=== PATIENT | male | born 1970 | race Two or more races ===

== ENCOUNTER 2024-06-27 05:55 | Day surgery (SDC) | payer BC, SELFPAY ==
--- NOTE | 2024-06-26 06:27 | EKG_ITS ---
[facility] Test Date: 2024-06-26 Pat Name: RONALD MARES Department: Room: - Gender: Male [employer]: ALICIA : 1970 Requested By: Tony Martinez Order Number: [id number] Reading MD: Tony Martinez Measurements Intervals [employer] Rate: 58 P: 54 NV: 219 QRS: 2 QRSD: 122 T: 73 QT: 439 QTc: 432 Interpretive Statements SINUS BRADYCARDIA WITH FIRST DEGREE AV BLOCK INFERIOR MYOCARDIAL INFARCTION , OF INDETERMINATE AGE No previous ECG available for comparison /[id number]
[2024-06-26 08:31] VITALS: BMI 35.7
[2024-06-26 09:51] LABS: Alanine Aminotransferase 44 U/L (10-49); Albumin, Serum 4.9 gm/dL (3.5-5.0); Alkaline Phosphatase 52 U/L (46-116); Anion Gap 7 (7-16); Aspartate Amino Transferase 28 U/L (0-34); BUN/Creatinine Ratio 18 Ratio (12-20); Bilirubin,Total 0.9 mg/dL (0.3-1.2); Blood Urea Nitrogen 20 mg/dL (9-23); Calcium 10.2 mg/dL (8.3-10.6); Calcium (Corrected) 10.2 mg/dL (8.5-10.1); Carbon Dioxide 30.3 mMol/L (20.0-31.0); Chloride 102 mMol/L (98-107); Creatinine (Component) 1.1 mg/dL (0.6-1.3); Estimated Creatinine Clearance 89.8 mL/min (>60); Globulin 2.5 gm/dL (2.3-3.5); Glucose 140 mg/dL (74-106); Osmolality,Calculated 282 (275-295); Potassium 4.2 mMol/L (3.4-5.1); Sodium 139 mMol/L (136-145); Total Protein 7.4 gm/dL (5.7-8.2); eGFR > 60 See Note
[2024-06-27] VITALS (7 sets, daily range): BP systolic 113–140; BP diastolic 61–93; PULSE 66–90; RESP 12–18; TEMP 36.2–36.4; O2SAT 94–99; BMI 35.2
[2024-06-27] MEDS: RINGERS LACTATED 1000 ML 1,000 ML 20 ML IV (06:25)
--- NOTE | 2024-06-27 09:40 | SUR.PHASEI ---
pt received from OR in recovery bay 7. pt asleep but responds to voice, breathing unlabored on oxymask 8l. v/s stable. pt dressing to left ear cdi. report received from Dr. Cohn and Yareli VALENTINE.
--- NOTE | 2024-06-27 09:44 | PD.SUROPNT ---
Date of Procedure 06/27/24 Pre Op Diagnosis Profound sensorineural hearing loss left ear Post Op Diagnosis Profound sensorineural hearing loss left ear Procedure Insertion of left Sentio implant Findings Normal postauricular anatomy Procedure Description Indications: This is a 53-year-old male with sudden hearing loss in the left ear that is not amenable to hearing aids. Treatment options were discussed and he wished to proceed with the implant as described above. Risk of bleeding infection and implant extrusion were discussed with him. Patient was marked in the preoperative setting and shaved. He then transferred to the operative suite where he is anesthetized intubated and sterilely prepped and draped. Timeout was performed. Marking pen was used to outline the incision site as well as the intended implant site. A curvilinear postauricular incision was then made after injecting with lidocaine 1% with 1-100,000 dilution epinephrine. Scalp thickness was measured to be 8 mm prior to the injection. 15 blade was then used to make the incision and then cautery knife used to control oozing at the incision site. Periosteal elevator was used to elevate the periosteum off the intended well site. A pocket was created posteriorly and superiorly for the magnet and coil. The well was drilled to the desired size and depth with a 4 mm cutting bur. A channel was created as well for the neck. The implant was then brought into the field once the oozing had been controlled and placed in the pocket. Eventually the 45 mm band was selected to hold the implant in position. It was secured with the titanium screw on each side. The incision was then closed in a multilayer fashion with 4-0 Vicryl and Dermabond on the skin. Patient was awakened and taken the recovery room in stable condition Anesthesia GETA Implants Sentio implant Pathology / specimen None Estimated Blood Loss 15 Surgeon Tony Garcia DO Surgical Staff Operation Date: 06/27/24 07:30 Case Staff Anesthesiologist: Vineet Cohn
[2024-06-27] MEDS: fentaNYL CIT INJ 50 mCg/ML AMP 2ML 25 MCG IV (10:13)
--- NOTE | 2024-06-27 10:20 | SUR.PHASEII ---
pt able to tolerate oral fluids without difficulty swallowing or nausea/vomiting.
--- NOTE | 2024-06-27 10:40 | SUR.PHASEII ---
pt awake and alert, breathing unlabored on room air. v/s stable. pt dressing to left ear cdi. pt able to ambulate to wheelchair with steady gait. d/c instructions given with Sunshine in room, all questions answered. pt d/c via wheelchair with all belongings.
== END 2024-06-27 10:40 | disposition home or self-care (01) ==
PROVIDERS: PCP Family Medicine; Referring Provider Otolaryngology; Visit Provider Otolaryngology
PROC: (CPT 69710; principal; 2024-06-27 07:30)
DX: H91.92 Unspecified hearing loss, left ear (principal); Z01.810 Encounter for preprocedural cardiovascular examination
CPT/HCPCS: 69716; 36415; 80053; 93005; A4217; A4649; C1713; J0690; J1100; J2250; J2371; J2405; J2704; J3010; J3490; J7030; J7120; Q9968; A9270